=== PATIENT | female | born 1950 | race Caucasian/White ===

== ENCOUNTER 2023-10-18 13:04 | Emergency (ER) | payer OTHER ==
[~2023-10-18] VITALS: Ht 157.5 cm; Wt 70.3 kg
[2023-10-18 19:18] LABS: BASOPHILS # (AUTO) 0.1 X10'3 (0-0.2); BASOPHILS % (AUTO) 1.1 % (0-1); EOSINOPHILS # (AUTO) 0.1 X10'3 (0-0.9); HEMATOCRIT 42.6 % (35.0-45.0); LYMPHOCYTES % (AUTO) 29.5 % (21-51); MEAN CORPUSCULAR HEMOGLOBIN 30.7 PG (27.0-31.0); MEAN CORPUSCULAR HGB CONC 32.9 g/dL (33.0-36.5); MEAN CORPUSCULAR VOLUME 93.3 FL (78-98); MEAN PLATELET VOLUME 7.9 FL (7.4-10.4); MONOCYTES # (AUTO) 0.8 X10'3 (0-0.9); MONOCYTES % (AUTO) 12.1 % (2-12); NEUTROPHILS # (AUTO) 3.8 X10'3 (1.8-7.7); NEUTROPHILS % (AUTO) 56.3 % (42-75); PLATELET COUNT 260 X10'3 (140-440); RED BLOOD COUNT 4.57 X10'6 (4.20-5.60); RED CELL DISTRIBUTION WIDTH 12.7 % (11.5-14.5); WHITE BLOOD COUNT 6.7 X10'3 (4.5-11.0)
[2023-10-18 19:33] LABS: ALANINE AMINOTRANSFERASE 47 U/L (12-78); ALBUMIN 3.2 G/DL (3.4-5.0); ALBUMIN/GLOBULIN RATIO 0.7 (1.1-1.5); ALKALINE PHOSPHATASE 109 IU/L (46-116); ANION GAP 6 (8-16); ASPARTATE AMINO TRANSFERASE 29 U/L (10-37); BILIRUBIN,TOTAL 0.3 MG/DL (0.1-1.0); BLOOD UREA NITROGEN 12 MG/DL (7-18); BUN/CREATININE RATIO 15.2 (10.0-20.0); CHLORIDE 105 MMOL/L (99-107); CREATININE 0.79 MG/DL (0.40-0.90); ETHANOL < 10 MG/DL (<10); GLUCOSE 92 MG/DL (70-104); POTASSIUM 3.5 MMOL/L (3.5-5.1); SODIUM 141 MMOL/L (135-145); TOTAL CARBON DIOXIDE 30.1 MMOL/L (24-32); TOTAL PROTEIN 7.6 G/DL (6.4-8.2); eCRCL 50 ML/MIN; eGFR 71 ML/MIN
[2023-10-18] MEDS: cloNIDine 0.1 mg tablet PO SCH (20:13)
[2023-10-18 20:27] LABS: BILIRUBIN,URINE NEGATIVE (Neg); CLARITY,URINE CLEAR (Clear); COLOR,URINE YELLOW (Yellow); GLUCOSE, URINE NEGATIVE (Neg); KETONES,URINE NEGATIVE (Neg); LEUKOCYTE ESTERASE ,URINE NEGATIVE (Neg); NITRITES, URINE NEGATIVE (Neg); OCCULT BLOOD,URINE NEGATIVE (Neg); PROTEIN,URINE NEGATIVE (Neg); UROBILINOGEN,URINE 0.2 E.U/dL (0.2-1.0)
[2023-10-18] MEDS ORDERED: Neutra Phos packet PO PRN (20:30)
[2023-10-18] MEDS ORDERED: sodium bicarbonate (8.4%) inj. 50 MEQ in dextrose 5% water 500ml 250 ML IV PRN (20:30)
[2023-10-18] MEDS ORDERED: sodium bicarbonate (8.4%) inj. 100 MEQ in dextrose 5% water 500ml 500 ML IV PRN (20:30)
[2023-10-18] MEDS ORDERED: normal saline 1000ml 1,000 ML IV SCH ×2 (20:30)
[2023-10-18] MEDS ORDERED: sodium phosphate inj. 30 MMOL in dextrose 5%-water 250 ML IV PRN (20:30)
[2023-10-18] MEDS ORDERED: Insulin Reg/NS 100units/100mL 100 ML IV SCH (20:30)
[2023-10-18] MEDS ORDERED: sodium phosphate inj. 15 MMOL in dextrose 5%-water 250 ML IV PRN (20:30)
[2023-10-18] MEDS ORDERED: potassium Cl 20 mEq SR tablet PO PRN ×2 (20:30)
[2023-10-18] MEDS ORDERED: potassium Cl 40MEQ/1/2NS 520ml 520 ML IV PRN ×2 (20:30)
[2023-10-18] MEDS ORDERED: insulin regular, human U-100 3ml vial - multi-dose IV PRN (20:30)
[2023-10-18] MEDS ORDERED: potassium CL 20mEq in D5-1/2NS 1,000 ML IV PRN (20:30)
[2023-10-18 20:31] LABS: UA COLLECTION TYPE CLN CATCH MIDSTREAM
[2023-10-18 20:43] LABS: URINE AMPHETAMINE SCREEN NEGATIVE (Neg); URINE BARBITUATE SCREEN NEGATIVE (Neg); URINE BENZODIAZEPINES SCREEN NEGATIVE (Neg); URINE CANNABINOID SCREEN NEGATIVE (Neg); URINE COCAINE SCREEN NEGATIVE (Neg); URINE METHADONE SCREEN NEGATIVE (Neg); URINE OPIATE SCREEN NEGATIVE (Neg); URINE PHENCYCLIDINE SCREEN NEGATIVE (Neg)
[2023-10-18 21:04] LABS: PHOSPHORUS 3.7 MG/DL (2.3-4.5)
[2023-10-18 21:40] VITALS: BP 136/72; PULSE 81; RESP 16; TEMP 98.2; O2SAT 97
[2023-10-19] MEDS ORDERED: K and/or MAG REPLACEMENT MC SCH (08:00)
== END 2023-10-18 21:43 | disposition home or self-care (01) ==
LOC: ER 13:05
DX: G44.89 Other headache syndrome (principal); E78.00 Pure hypercholesterolemia, unspecified; E07.9 Disorder of thyroid, unspecified; I10 Essential (primary) hypertension; Z88.0 Allergy status to penicillin
CPT/HCPCS: 36415; 70450; 70486; 71045; 80053; 80305; 80320; 81003; 84100; 84484; 85025; 93005; 99285; A4615

== ENCOUNTER 2023-10-22 18:56 | Emergency (ER) | payer OTHER ==
[~2023-10-22] VITALS: Ht 157.5 cm; Wt 70.2 kg
[2023-10-22 20:30] VITALS: TEMP 97.4
[2023-10-22] MEDS ORDERED: amLODIPine 5mg tablet PO ONE (20:45)
[2023-10-23 03:13] VITALS: BP 161/81; PULSE 71; O2SAT 95
[2023-10-23 03:21] VITALS: RESP 16
== END 2023-10-23 03:37 | disposition home or self-care (01) ==
LOC: ER 18:56
DX: I10 Essential (primary) hypertension (principal); E78.00 Pure hypercholesterolemia, unspecified; Z88.0 Allergy status to penicillin
CPT/HCPCS: 99283

== ENCOUNTER 2025-07-29 08:33 | Day surgery (SDC) | payer OTHER ==
[2025-07-29] VITALS (10 sets, daily range): BP systolic 120–179; BP diastolic 62–84; PULSE 65–90; RESP 9–16; TEMP 97.4; O2SAT 98–100
[~2025-07-29] VITALS: Ht 157.5 cm; Wt 63.4 kg
[~2025-07-29 08:33] MED LIST: CHOL3000 PO; CLON0.1T2 PO; GABA-530 PO; LEVO100T9 PO; LIDOcaine 2% Viscous 15ml cup MM ONE; LISI40TA20 PO; LOVA40TA2 PO; PANT40SU2 PO; TIOT18CA3 INH; ringers solution, lacted 1,000 ML IV SCH
--- NOTE | 2025-07-29 09:35 | ELECTROCARDIOGRAPH REPORT ---
[facility] Test Date: 2025-07-29 Test Time: 09:31:55 Pat Name: JOSÉ LUIS HAMEED Department: [facility]-GI LAB Patient ID: [facility]-[id number] Room: Gender: F [employer]: JEFFRY : 1950 Requested By: ZACHARY ELY Order Number: [id number] Reading MD: Dr. 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 Mj Crook Please click the below link to view image of tracing.
[2025-07-29] MEDS ORDERED: midazolam 1 mg/ML 2ml injection ONE (09:54)
[2025-07-29] MEDS ORDERED: LIDOcaine 2% (20mg/ml) 5ml vial ONE (09:55)
[2025-07-29] MEDS ORDERED: propofol 10mg/ml 20ml vial IV ONE (10:07)
== END 2025-07-29 11:42 | disposition home or self-care (01) ==
LOC: GI LAB 08:33
PROVIDERS: ATTEND Internal Medicine Gastroenterology
DX: R63.4 Abnormal weight loss (principal); R10.13 Epigastric pain; R11.0 Nausea; K31.89 Other diseases of stomach and duodenum; R94.31 Abnormal electrocardiogram [ECG] [EKG]; I12.9 Hypertensive chronic kidney disease with stage 1 through stage 4 chronic kidney disease, or unspecified chronic kidney disease; N18.30 Chronic kidney disease, stage 3 unspecified; J44.9 Chronic obstructive pulmonary disease, unspecified; E78.00 Pure hypercholesterolemia, unspecified; E03.9 Hypothyroidism, unspecified; Z79.899 Other long term (current) drug therapy; Z98.891 History of uterine scar from previous surgery; Z98.890 Other specified postprocedural states; Z68.25 Body mass index [BMI] 25.0-25.9, adult; Z88.0 Allergy status to penicillin
CPT/HCPCS: 43239; 88305; 88342; 93005; J2003; J2250; J2704; J7120; Z7512; A4618; A4620